=== PATIENT | male | born 1965 | race Caucasian/White ===

== ENCOUNTER 2020-05-28 06:54 | Outpatient (NON) | payer BC, SELFPAY ==
[2020-05-29 01:24] LABS: SARS-CoV-2 RNA PCR Negative
== END 2020-05-28 06:55 ==
PROVIDERS: PCP Family Medicine; Visit Provider Family Medicine
DX: R68.89 Other general symptoms and signs (principal); Z20.828 Contact with and (suspected) exposure to other viral communicable diseases
CPT/HCPCS: 87635; C9803; U0003

== ENCOUNTER 2023-03-29 08:41 | Outpatient (CLI) | payer OTHER, SELFPAY ==
[2023-03-29 15:11] LABS: LDL Cholesterol Direct 94 mg/dL
[2023-03-29 15:30] LABS: Alanine Aminotransferase 23 U/L (6-50); Albumin Level 4.4 g/dL (3.5-5.1); Alkaline Phosphatase 60 U/L (38-126); Anion Gap 6 mmol/L (8-16); Aspartate Amino Transferase 47 U/L (17-59); Blood Urea Nitrogen 16 mg/dL (9-20); Calcium 9.4 mg/dL (8.4-10.2); Carbon Dioxide 30 mmol/L (22-30); Chloride 100 mmol/L (98-107); Cholesterol 230 mg/dL (0-200); Estimated Glomerular Filt Rate > 60; Glucose 81 mg/dL (65-110); Potassium 4.3 mmol/L (3.4-5.0); Prostate Specific Antigen 2.7 ng/mL (< OR = 4.0); Sodium 136 mmol/L (137-145); Triglycerides 44 mg/dL (<150)
[2023-03-29 18:17] LABS: HDL Direct 122 mg/dL
== END 2023-03-29 08:42 | disposition home or self-care (01) ==
LOC: ANHGOSHLAB 08:43
PROVIDERS: PCP Family Medicine; Visit Provider Family Medicine
DX: Z13.220 Encounter for screening for lipoid disorders (principal); Z13.228 Encounter for screening for other metabolic disorders; Z12.5 Encounter for screening for malignant neoplasm of prostate
CPT/HCPCS: 36415; 80053; 80061; 84153; G0103

== ENCOUNTER 2023-12-17 03:03 | Day surgery (SDC) | payer OTHER, SELFPAY ==
[2023-11-29 14:13] VITALS: BMI 20.5
[2023-12-17 08:57] VITALS: BP 114/73; PULSE 44; RESP 16; TEMP 36; O2SAT 100
--- NOTE | 2023-12-17 08:59 | SUR.PREOP ---
Patient's heart rate is 44 bpm. Patient states he is a runner and his heart rate is always low. Dr. Church made aware and okay to proceed with procedure.
[2023-12-17] MEDS: LACTATED RINGERS 1,000 ML 150 ML IV CONT (09:04)
--- NOTE | 2023-12-17 09:59 | WPDANESEPPF ---
Anes - Initial Pre Proc Eval Procedure: Operation Date: 12/17/23 10:00 Proposed Procedures p Screening Colonoscopy - Papo Gr DO Date/Time: 12/17/23 09:59 Surgeon: Papo Gr DO Pre Op Diagnosis: Neoplasm Screening Patient Data Age: 58 Gender: M Height: 1.88 m Weight: 72.2 kg Last Vital Signs Temp 96.8 F L 12/17/23 08:57 Pulse 44 L 12/17/23 08:57 Resp 16 12/17/23 08:57 BP 114/73 12/17/23 08:57 Pulse Ox 100 12/17/23 08:57 O2 Del Method Room Air 12/17/23 08:57 Allergies Allergy/AdvReac Type Severity Reaction Status Date / Time No Known Allergies Allergy Verified 12/17/23 08:56 Home Medications Medication Instructions Recorded Confirmed Type multivitamin 1 tablet PO DAILY 04/15/20 11/29/23 History pantoprazole 40 mg tablet,delayed See Rx Instructions .Route 11/08/23 11/29/23 Rx release .COMPLEX #90 tabs Fiber (psyllium husk) 5 g PO DAILY 11/29/23 11/29/23 History Glucosamine-Chondroitin 3X Str 2 cap PO DAILY 11/29/23 11/29/23 History mecobalamin (vitamin B12) 5,000 5,000 mcg PO DAILY 11/29/23 11/29/23 History mcg disintegrating tablet omega-3 fatty acids 4,000 mg PO DAILY 11/29/23 11/29/23 History vitamin D3 125 mcg (5,000 1 cap PO DAILY 11/29/23 11/29/23 History unit)-vitamin K2 90 mcg capsule Patient hx anesthesia problems: none Family hx anesthesia problems: none Results Review: All pre-operative results and documents have been reviewed as part of the pre-operative evaluation. [facility] Social History Social History Social History: caffeine- 2 cups coffee daily Smoking status: Never smoker Alcohol intake: current Drinks per week: 5 Alcohol use details: DRINK Substance use: never Substance use type: does not use Lack of Transportation: No Lack of Food: Never True Current Housing: I Have Housing Concerned About Future Housing: No Difficulty Paying Gas/Electric Bills: No Difficulty Paying for Meds: No Currently Unemployed: No Education: Bachelor's Degree Difficulty w/ Childcare or Family Care: No Living arrangements: with family Spiritual care concerns: No Anes - Eval Final PreProcedure Day of Procedure 12/17/23 09:59 Patient weight: normal Heart: regular rate and rhythm Lungs: clear to auscultation Airway: Mallampati scale class II Neurological: alert and oriented Last oral intake: >/= 8 hours ASA classification: II Emergent: no Anesthetic plan: proceed Anesthesia type and monitoring: general GIVS and standard monitoring Results Review: All pre-operative results and documents have been reviewed as part of the pre-operative evaluation. Informed Consent: The patient's anesthetic plan and its attendant risks and benefits were discussed with the patient/family/POA. Questions were solicited and answers provided to the satisfaction of the patient/family/POA.
--- NOTE | 2023-12-17 10:19 | PM.IMHP ---
H&P: HPI History of Present Illness Date/Time: 12/17/23 10:19 Chief Complaint: family history of colon cancer Narrative: this is a 58-year-old man who presents for colonoscopy. His last colonoscopy was 5 years ago. He denies any hematochezia or melena. He does have a family history of colon cancer and his father. Review of Systems Review of Systems: All systems reviewed & are unremarkable except as noted in HPI and below Constitutional: Constitutional: Denies chills, Denies fever(s), Denies headache(s) and Denies weight loss Eyes: Eyes: Denies change in vision ENT: Denies dizziness, Denies headache(s), Denies neck mass and Denies throat swelling Cardiovascular: Cardiovascular: Denies chest pain, Denies lightheadedness and Denies dyspnea Respiratory: Respiratory: Denies cough, Denies dyspnea and Denies wheezing Gastrointestinal: Gastrointestinal: Denies abdominal pain, Denies change in bowel habits, Denies nausea and Denies vomiting Genitourinary: Genitourinary: Denies hematuria and Denies dysuria Musculoskeletal: Musculoskeletal: Reports as per HPI Integumentary/Breasts: Skin/Breast: Reports as per HPI Neurologic: Denies dizziness and Denies headache(s) Allergic/Immunologic: Allergic/Immunologic: Denies throat swelling and Denies wheezing [facility] Family History Family History (Updated 12/17/23 @ 10:19 by Papo Gr DO) Father Carcinoma of colon Social History Social History Social History: caffeine- 2 cups coffee daily Smoking status: Never smoker Alcohol intake: current Drinks per week: 5 Alcohol use details: DRINK Substance use: never Substance use type: does not use Lack of Transportation: No Lack of Food: Never True Current Housing: I Have Housing Concerned About Future Housing: No Difficulty Paying Gas/Electric Bills: No Difficulty Paying for Meds: No Currently Unemployed: No Education: Bachelor's Degree Difficulty w/ Childcare or Family Care: No Living arrangements: with family Spiritual care concerns: No Meds Home Medications and Allergies Home Medications Medication Instructions Recorded Confirmed Type multivitamin 1 tablet PO DAILY 04/15/20 11/29/23 History pantoprazole 40 mg tablet,delayed See Rx Instructions .Route 11/08/23 11/29/23 Rx release .COMPLEX #90 tabs Fiber (psyllium husk) 5 g PO DAILY 11/29/23 11/29/23 History Glucosamine-Chondroitin 3X Str 2 cap PO DAILY 11/29/23 11/29/23 History mecobalamin (vitamin B12) 5,000 5,000 mcg PO DAILY 11/29/23 11/29/23 History mcg disintegrating tablet omega-3 fatty acids 4,000 mg PO DAILY 11/29/23 11/29/23 History vitamin D3 125 mcg (5,000 1 cap PO DAILY 11/29/23 11/29/23 History unit)-vitamin K2 90 mcg capsule Allergies Allergy/AdvReac Type Severity Reaction Status Date / Time No Known Allergies Allergy Verified 12/17/23 08:56 Vital Signs Vital Signs - 24 hr 12/17/23 08:57 Temperature 36.0 C L Pulse Rate 44 L Respiratory Rate 16 Blood Pressure 114/73 Pulse Oximetry 100 Oxygen Delivery Room Air Exam Const: General: no acute distress and alert Orientation/consciousness: patient oriented x3 HENMT: Head: normocephalic and atraumatic Ears: hearing grossly normal bilaterally Face/Nose/Sinus: Normal nares present Mouth: Yes Normal oral and palatal mucosa present Eyes: Periorbital: periorbital findings normal Sclera: sclerae normal EOM: EOMs intact bilaterally Neck: Neck: normal visual inspection, no lymphadenopathy and trachea midline Chest: Chest palpation & inspection: normal inspection of the chest Resp: Effort & Inspection: normal respiratory effort Auscultation: clear to auscultation bilaterally Cardio: Jugular venous distension: no JVD Rate: regular rate Rhythm: regular rhythm Heart sounds: S1 normal heart sound present and S2 normal heart sound present Peripheral pulses: Peripheral pulses 2
[2023-12-17 10:52] VITALS: BP 123/69; PULSE 58; RESP 20; O2SAT 100
[2023-12-17 11:02] VITALS: BP 131/69; PULSE 45; RESP 16; O2SAT 100
[2023-12-17 11:22] VITALS: BP 125/76; PULSE 44; RESP 17; O2SAT 100
== END 2023-12-17 11:23 | disposition home or self-care (01) ==
PROVIDERS: PCP Family Medicine; Visit Provider Surgery
PROC: 0DJD8ZZ Inspection of Lower Intestinal Tract, Via Natural or Artificial Opening Endoscopic (ICD-10-PCS; CPT 45378; principal; 2023-12-17 10:00)
DX: Z12.11 Encounter for screening for malignant neoplasm of colon (principal); K57.30 Diverticulosis of large intestine without perforation or abscess without bleeding; Z80.0 Family history of malignant neoplasm of digestive organs
CPT/HCPCS: 45378; J1596; J2704; J7120

== ENCOUNTER 2024-04-01 08:11 | Outpatient (CLI) | payer OTHER, SELFPAY ==
[2024-04-01 13:07] LABS: Basophils Percent Auto 0.8 % (0.2-1.2); Eosinophils Absolute Auto 0.1 K/mm3 (0-0.3); Eosinophils Percent Auto 1.6 % (0-4.4); Hematocrit 42.7 % (42.0-52.0); Hemoglobin 13.7 g/dL (14.0-18.0); Immature Granulocyte Absolute 0.01 K/mm3 (0.00-0.031); Immature Granulocyte Percent A 0.3 % (0-0.5); Lymphocytes Absolute Auto 0.93 K/mm3 (0.9-3.2); Lymphocytes Percent Auto 25.3 % (18.3-44.2); Mean Corpuscular HGB Conc 32.1 g/dl (32-36); Mean Corpuscular Hemoglobin 32.9 pg (26-34); Mean Corpuscular Volume 102.4 fl (80-100); Mean Platelet Volume 11.8 fl (7.4-10.4); Monocytes Absolute Auto 0.4 K/mm3 (0.1-0.6); Monocytes Percent Auto 10.3 % (2.6-8.5); Neutrophils Absolute Auto 2.3 K/mm3 (1.3-6.7); Neutrophils Percent Auto 61.7 % (45.5-73.1); Platelet Count Result 157 k/mm3 (150-375); Red Blood Count 4.17 M/mm3 (4.6-6.20); Red Cell Distribution Width 13.5 % (11.5-14.5); White Blood Count 3.7 K/mm3 (4.5-10.0)
[2024-04-01 13:26] LABS: Alanine Aminotransferase 23 U/L (6-50); Albumin Level 4.3 g/dL (3.5-5.1); Alkaline Phosphatase 52 U/L (38-126); Anion Gap 6 mmol/L (4-12); Aspartate Amino Transferase 47 U/L (17-59); Bilirubin,Total 0.6 mg/dL (0.2-1.3); Blood Urea Nitrogen 18 mg/dL (9-20); Calcium 9.4 mg/dL (8.4-10.2); Carbon Dioxide 31 mmol/L (22-30); Chloride 101 mmol/L (98-107); Cholesterol 211 mg/dL (0-200); Estimated Glomerular Filt Rate > 60; Glucose 90 mg/dL (65-110); Potassium 4.4 mmol/L (3.4-5.0); Sodium 138 mmol/L (137-145); Triglycerides 50 mg/dL (<150)
[2024-04-01 13:34] LABS: LDL Cholesterol Direct 81 mg/dL
[2024-04-01 13:42] LABS: HDL Direct 116 mg/dL
[2024-04-01 13:52] LABS: Prostate Specific Antigen 3.3 ng/mL (< OR = 4.0)
[2024-04-01 14:38] LABS: Hemoglobin A1C 5.5 % (<5.7)
== END 2024-04-01 08:12 | disposition home or self-care (01) ==
LOC: ANHGOSHLAB 08:12
PROVIDERS: PCP Family Medicine; Visit Provider Family Medicine
DX: R73.9 Hyperglycemia, unspecified (principal); Z13.220 Encounter for screening for lipoid disorders; Z13.228 Encounter for screening for other metabolic disorders; Z12.5 Encounter for screening for malignant neoplasm of prostate; R53.83 Other fatigue
CPT/HCPCS: 36415; 80053; 80061; 83036; 84153; 85025; G0103

== ENCOUNTER 2025-04-06 08:00 | Outpatient (CLI) | payer OTHER, SELFPAY ==
--- OUTSIDE RECORDS SUMMARY | 2025-04-06 08:10 | XMS_ITS | Clinical Summary ---
Author Organization [facility] Address [address] [place]: Epic Prelude ADT [place] [address] Care Team Providers Care Mathematics Instructor Name Role Phone Unavailable Primary Care Provider Unavailabl e Medications pantoprazole (PROTONIX) 40 mg Tablet, Delayed Release (E.C.) Take 1 Tablet (40 mg) by mouth daily in the morning. 90 Tablet 1 05/11/2023 10:59 AM EMPLOYEE BENEFITS MANAGER 02/12/2023 Active pantoprazole (PROTONIX) 40 mg Tablet, Delayed Release (E.C.) TAKE ONE TABLET BY MOUTH EVERY MORNING 90 Tablet 1 02/08/2024 11:11 AM CDT 11/08/2023 Active diclofenac-miSO PROStol (ARTHROTEC) 75-200 mg-mcg Tab,IR & Delay Rel,Multiphasic TAKE ONE TABLET BY MOUTH TWICE A DAY 60 Tablet 1 05/01/2024 4:16 PM EMPLOYEE BENEFITS MANAGER 04/30/2024 Active pantoprazole (PROTONIX) 40 mg Tablet, Delayed Release (E.C.) TAKE ONE TABLET BY MOUTH EVERY MORNING 90 Tablet 1 05/11/2024 5:19 PM EMPLOYEE BENEFITS MANAGER 05/11/2024 Active diclofenac-miSO PROStol (ARTHROTEC) 75-200 mg-mcg Tab,IR & Delay Rel,Multiphasic Take 1 Tablet by mouth 2 times daily. 60 Tablet 1 03/13/2025 10:55 AM CDT 03/11/2025 Active metaxalone (SKELAXIN) 800 mg tablet Take 1 Tablet (800 mg) by mouth 1 time daily as needed for muscle pain. 14 Tablet 1 03/13/2025 10:55 AM CDT 03/11/2025 Active Encounters Date Type Department Care Team Description 03/23/2025 External Device Data [facility]STRACTION Provider, Abstract from Last 3 Months Social History Tobacco Use Types Packs/Day Years Used Date Smoking Tobacco: Never Assessed Sex and Gender Information Value Date Recorded Sex Assigned at Not on file Legal Sex Male 3:27 PM CDT Gender Identity Not on file Sexual Orientation Not on file Plan of Treatment Health Maintenance Due Date Last Done Comments DTAP/TDAP/TD VACCINES (1 - Tdap) 1982 COLORECTAL SCREENING 02/07/2008 Colorectal Cancer Screening 02/07/2008 FIT-DNA Q 3 years 02/07/2008 FIT/FOBT Q 1 year 02/07/2008 Flex Sig/CT Colonography Q 5 years 02/07/2008 ZOSTER VACCINE (1 of 2) 2013 INFLUENZA VACCINE (#1) 2025 RSV VACCINE (60+ or ) (1 - 1-dose 75+ series) 2038 Insurance RX [employer] (INTERNAL) [facility] [employer] [facility]
--- OUTSIDE RECORDS SUMMARY | 2025-04-06 08:10 | XMS_ITS | Clinical Summary ---
Author Organization [facility] Address [address] [address] Phone Care Team Providers Care Deck Mechanic Name Role Phone Magno Sutton MD Primary Care Provider +- [phone] Allergies No known active allergies Medications minocycline (MINOCIN, DYNACIN) 100 MG Capsule Take 100 mg by mouth 2 times daily. Active amoxicillin-clav ulanate (AUGMENTIN) 500-125 MG Tablet 04/23/2018 Active Cyanocobalamin (VITAMIN B 12 PO) Take by mouth. Active pantoprazole (PROTONIX) 40 MG Tablet Delayed Response Take 1 Tab by mouth 2 times daily. 60 Tab 06/22/2020 Active Immunizations Immunization Administration Dates Next Due Covid-19, Mrna, Lnp-s, Pf, 30 Mcg/0.3 Ml Dose (P fizer) 09/03/2020,08/12/2020 Family History Medical History Relation Name Comments Colon Cancer Father No Known Problems Mother Relation Name Status Comments Father Alive Mother Alive Social History Tobacco Use Types Packs/Day Years Used Date Smoking Tobacco: Never Smokeless Tobacco: Never Alcohol Use Standard Drinks/Week Comments Yes 3 (1 standard drink = 0.6 oz pure alcohol) 3 days a week 2 glasses of wine Sex and Gender Information Value Date Recorded Sex Assigned at Not on file Legal Sex Male 12:23 AM CDT Gender Identity Not on file Sexual Orientation Not on file Last Filed Vital Signs Vital Sign Reading Time Taken Comments Blood Pressure 120/70 05/16/2018 10:45 AM RELAY MECHANIC Pulse 66 05/16/2018 10:45 AM RELAY MECHANIC Temperature 35.7 C (96.2 F) 03/29/2017 11:01 AM CDT Respiratory Rate 20 05/16/2018 10:45 AM RELAY MECHANIC Oxygen Saturation 98% 05/16/2018 10:45 AM RELAY MECHANIC Inhaled Oxygen Concentration - - Weight 81.6 kg (180 lb) 05/16/2018 10:45 AM RELAY MECHANIC Height 188 cm (6' 2) 05/16/2018 10:45 AM RELAY MECHANIC Body Mass Index 23.11 05/16/2018 10:45 AM RELAY MECHANIC Plan of Treatment Health Maintenance Due Date Last Done Comments TdaP Immunization 1963 Cologuard 02/07/2008 Immunochemical Fecal Occult Blood 02/07/2008 Pneumococcal Immunization (5 0+ years) (1 of 1 - PCV) 2013 Zoster Immunization (1 of 2) 2013 Colonoscopy 08/19/2023 08/18/2018, 06/29/2013 Colorectal Cancer Screening 08/19/2023 Influenza Immunization (#1) 2025 SARS-COV-2 Immunization ( season) 2025 04/20/2021, 09/03/2020, 08/12/2020 Respiratory Syncytial Virus (RSV) Immunization (Adult) (1 - 1-dose 75+ series) 2038 PSA Discussion Discontinued 04/24/2017 Hepatitis C Virus (HCV) Screening Completed 05/29/2017 Hepatitis B Immunization Aged Out No longer eligible based on patient's age to complete this topic Human Papillomavirus (HPV) Immunization Aged Out No longer eligible based on patient's age to complete this topic Meningococcal Immunization (ACWY) Aged Out No longer eligible based on patient's age to complete this topic Rotavirus Immunization Aged Out No lo nger eligible based on patient's age to complete this topic Procedures Procedure Name Priority Date/Time Associated Diagnosis Comments COLONOSCOPY Routine 08/18/2018 HEPATITIS C ANTIBODY Routine 05/29/2017 PSA SCREEN Routine 04/24/2017 from Last 3 Months or Most Recently Relevant to Health Maintenance Results * COLONOSCOPY (08/18/2018) us Vick T Klaleksandra DO PROCEDURE/MINOR SURGICAL ORDERA BLES Final Result * HEPATITIS C ANTIBODY (05/29/2017) Blood specimen (specimen) Tamara Williams SHEET [employer] HELPER CHEMISTRY ORDERABLES Final Result * PSA SCREEN (04/24/2017) Blood specimen (specimen) Narrative Kelly Al B - 04/24/2017 HIMS CREATED IN ERROR. Sharon Sky SHEET [employer] HELPER, SUPERVISOR [employer] CHEMISTRY ORDERAB LES Edited Result - Final from Last 3 Months or Most Recently Relevant to Health Maintenance Insurance [facility] Care Teams Deck Mechanic Relationship Specialty Start Date End Date Magno Sutton MD [address] [place] [address] PCP - General Family Medicine 05/16/18
[2025-04-06 12:59] LABS: Hematocrit 43.3 % (42.0-52.0); Hemoglobin 14.2 g/dL (14.0-18.0); Immature Granulocyte Percent A 0.2 % (0-0.5); Immature Reticulocyte Fraction 9.5 % (3.0-15.9); Lymphocytes Absolute Auto 1.04 K/mm3 (0.9-3.2); Mean Corpuscular HGB Conc 32.8 g/dl (32-36); Mean Corpuscular Hemoglobin 33.5 pg (26-34); Mean Corpuscular Volume 102.1 fl (80-100); Nucleated Red Blood Cells Absolute Auto 0.000 K/mm3 (0.0-0.012); Nucleated Red Blood Cells Perc 0.0 % (0.0-0.2); Platelet Count Result 153 k/mm3 (150-375); Red Blood Count 4.24 M/mm3 (4.6-6.20); Reticulocyte Hemoglobin Conten 37.3 pg (28.2-36.6); Reticulocytes Absolute 0.06 10^6/uL (0.02-0.10); White Blood Count 4.4 K/mm3 (4.5-10.0)
[2025-04-06 13:05] LABS: Alanine Aminotransferase 28 U/L (6-50); Albumin Level 4.4 g/dL (3.5-5.1); Alkaline Phosphatase 61 U/L (38-126); Anion Gap 8 mmol/L (4-12); Aspartate Amino Transferase 52 U/L (17-59); Bilirubin,Total 0.9 mg/dL (0.2-1.3); Blood Urea Nitrogen 22 mg/dL (9-20); Calcium 9.5 mg/dL (8.4-10.2); Carbon Dioxide 28 mmol/L (22-30); Chloride 103 mmol/L (98-107); Estimated Glomerular Filt Rate > 60; Glucose 97 mg/dL (65-110); Potassium 3.9 mmol/L (3.4-5.0); Sodium 139 mmol/L (137-145); Total Protein 7.2 g/dL (6.3-8.2)
[2025-04-06 13:38] LABS: Ferritin 296.00 ng/mL (11.1-264)
[2025-04-06 13:40] LABS: Prostate Specific Antigen 3.5 ng/mL (< OR = 4.0)
[2025-04-06 14:16] LABS: Vitamin B12 > 1000.0 pg/mL (239-931)
== END 2025-04-06 08:01 | disposition home or self-care (01) ==
LOC: ANHGOSHLAB 08:01
PROVIDERS: PCP Internal Medicine; Visit Provider Internal Medicine
DX: D64.9 Anemia, unspecified (principal); R97.20 Elevated prostate specific antigen [PSA]
CPT/HCPCS: 36415; 80053; 82607; 82728; 82746; 84153; 85025; 85046